=== PATIENT | male | born 1995 | race Caucasian/White ===

== ENCOUNTER → 2017-05-12 | Outpatient (REF) | LOC: M SMT 13:28 | DX: M51.37 Other intervertebral disc degeneration, lumbosacral region (principal) ==

== ENCOUNTER → 2020-07-15 | Outpatient (CLI) | payer OTHER | LOC: M LABSMTC 08:45 | PROVIDERS: ATTEND Anesthesiology | DX: Z20.828 Contact with and (suspected) exposure to other viral communicable diseases (principal); Z11.59 Encounter for screening for other viral diseases ==

== ENCOUNTER 2020-07-20 08:45 | Day surgery (SDC) | payer OTHER ==
[~2020-07-20] VITALS: Ht 182.9 cm; Wt 105.0 kg
[~2020-07-20 08:45] MED LIST: AMPICILLIN SOD/SULBACTAM SOD 3 GM in D5W MINI-BAG PLUS 100 ML IV ONE; LR 1,000 ML IV ONE; dexameTHASONE 4 MG/ML 1ML VIAL (J1100 PER 1MG) IV ONE
[2020-07-20] MEDS ORDERED: CHLORHEXIDINE GLUCONATE 0.12 % 15ML UDC (PERIDEX ORAL RINSE) As Ordered ONE (12:30)
[2020-07-20] MEDS ORDERED: LIDOCAINE 2% W/ EPINEPHRINE 1.7 ML DENTAL INJ As Ordered ONE ×2 (12:30→13:07)
[2020-07-20] MEDS ORDERED: propofoL 200 MG/20 ML VIAL As Ordered ONE ×2 (12:39→14:14)
[2020-07-20] MEDS ORDERED: ROCURONIUM BROMIDE 50 MG/5 ML VIAL As Ordered ONE (12:39)
[2020-07-20] MEDS ORDERED: fentaNYL 250 MCG/5 ML INJECTION (J3010) As Ordered ONE (12:39)
[2020-07-20] MEDS ORDERED: MIDAZOLAM INJ 2MG/2ML VIAL (J2250 PER 1MG) As Ordered ONE (12:39)
[2020-07-20] MEDS ORDERED: ONDANSETRON 4MG/2ML VIAL As Ordered ONE (12:39)
[2020-07-20] MEDS ORDERED: dexameTHASONE 4 MG/ML 1ML VIAL (J1100 PER 1MG) As Ordered ONE (12:39)
[2020-07-20] MEDS ORDERED: LIDOCAINE 2% 100MG/5ML SDV (FOR ANES.) As Ordered ONE (12:39)
[2020-07-20] MEDS ORDERED: SUGAMMADEX SODIUM 500 MG/5 ML VIAL (BRIDION) As Ordered ONE (13:58)
[2020-07-20] MEDS ORDERED: ACETAMINOPHEN 1000MG 100ML IV BTL (OFIRMEV) (J0131 PER 10MG) As Ordered ONE (13:58)
[2020-07-20] MEDS ORDERED: HYDROmorphone HCL 2 MG/ML 1ML VIAL (J1170) As Ordered ONE (14:06)
[2020-07-20] MEDS ORDERED: ONDANSETRON 4MG/2ML VIAL IV PRN (14:50)
[2020-07-20] MEDS ORDERED: oxyCODONE 5MG TAB PO PRN (14:50)
[2020-07-20] MEDS ORDERED: LR 1,000 ML IV SCH (14:50)
[2020-07-20] MEDS ORDERED: HYDROMORPHONE HCL 0.5 MG/ 0.5 ML SYRINGE (J1170 PER 1) IV PRN (14:50)
[2020-07-20] MEDS ORDERED: fentaNYL 100 MCG/2 ML INJECTION (J3010) IV PRN (14:50)
[2020-07-20 16:10] VITALS: BP 160/82
--- NOTE | 2020-07-22 10:45 | RO ---
OPERATIVE NOTE DATE OF OPERATION: 07/20/2020 PREOPERATIVE DIAGNOSIS: 1. Severe dental anxiety, difficult airway. 2. Hopeless and symptomatic dentition, including teeth #3, 4, 5, 6, 7, 8, 9, 10, 11, 13, 14, 19, 20, 22, 23, 24, 25, 26, 27, and 29. POSTOPERATIVE DIAGNOSIS: Status post the above. PROCEDURE: Extraction of all the aforementioned teeth. SURGEON: Don Sow DMD, MD ANESTHESIA: General endotracheal anesthesia via nasal KATHLEEN. SPECIMEN: Teeth for gross only. INDICATIONS FOR SURGERY: Alfred is a pleasant 25-year-old male referred to my office for evaluation for extraction of of his teeth. He does complain of dental pain, difficulty eating, and malnutrition due to the daily tooth pain. He desires to have all of teeth performed under general anesthesia due to his severe dental anxiety, and due to his difficult airway he is not a candidate for anesthesia. Therefore, I set him up to have the procedure done in the operating room under general anesthesia at [facility]. All the risks, benefits, and alternatives were explained to the patient. A complete history and physical and informed consent are in the patient's chart. DESCRIPTION OF PROCEDURE: Patient was taken back to the operating room. He was laid supine on the operating room table. Ulnar nerve protectors were placed. Noninvasive cardiac monitors were applied. At that point, the patient underwent general anesthesia and was intubated with a nasal KATHLEEN. He was then prepped and draped in the usual sterile fashion. A time-out procedure was performed, identifying the patient, the procedure, and any other precautions. Preoperative antibiotics and steroids were administered in the intravenous (IV). A moist throat pack was then inserted in the patient's oropharynx followed by the administration of 8 carpules of 2% lidocaine with 1:100,000 epinephrine as local infiltrations and blocks. At this point, a 15 blade was used to make a full-thickness flap, tooth area #3, 4, 5, 6, 11, 13, 14, 19, 20, 22, 27, and 29. Small buccal troughs were then made in those same exact tooth areas that I just mentioned. All those teeth were then luxated and delivered with ease without any incident. All sockets were curetted and irrigated. No sinus exposure was noted. Inferior alveolar nerve was not noted. All the sockets, after being curetted and irrigated, the flaps were then closed with 3-0 chromic sutures. Routine forceps extractions of teeth #7, 8, 9, 10, 13, 23, 24, 25, 26 were then performed. All those sockets were also irrigated and suctioned. Gauze hemostasis was easily achieved. The oral cavity was then irrigated and suctioned once all the teeth were removed. The throat pack was removed, and the patient was then extubated and taken back to the postanesthesia care unit (PACU). ESTIMATED BLOOD LOSS: 50 mL. DRAINS: There were no drains placed. COMPLICATIONS: None.
== END 2020-07-20 16:22 | disposition home or self-care (01) ==
LOC: M SDC 08:45
PROVIDERS: ATTEND Dentist
DX: K02.9 Dental caries, unspecified (principal); F41.9 Anxiety disorder, unspecified; F17.220 Nicotine dependence, chewing tobacco, uncomplicated
CPT/HCPCS: 88300; D7140; D7210; D9223; J0131; J1100; J1170; J2250; J2405; J3010